=== PATIENT | female | born 1980 | race African-American/Black ===

== ENCOUNTER 2020-04-30 18:39 | Inpatient (IN) | payer OTHER ==
[~2020-04-30] VITALS: Ht 160 cm; Wt 62.4 kg
[2020-04-30 18:40] VITALS: BP 86/61
[2020-04-30 19:37] LABS: ABSOLUTE NEUTROPHILS 12.2 thou/uL (1.4-8.2); BASOPHILS 0.3 % (0.0-2.0); EOSINOPHILS 0.3 % (0.0-3.0); HEMATOCRIT 26.4 % (37.0-47.0); HEMOGLOBIN 8.9 gm/dL (12.0-15.0); LYMPHOCYTES 14.2 % (24.0-44.0); MCH 25.9 pg (26.0-34.0); MCHC 33.7 g/dL (28.0-37.0); MCV 76.8 fL (80.0-100.0); MONOCYTES 9.5 % (1.0-8.0); PLATELET COUNT 631 thou/uL (150-400); POLYS 75.7 % (36.0-66.0); RBC 3.44 mil/uL (4.20-5.00); RDW 19.2 % (10.5-14.5); WBC 16.2 thou/uL (4.0-11.0)
[2020-04-30 19:57] LABS: ALBUMIN 1.3 g/dL (3.4-5.0); ANION GAP 8 mmol/L (7-16); BUN 36 mg/dL (7-18); CALCIUM 9.5 mg/dL (8.5-10.1); CHLORIDE 99 mmol/L (98-107); CO2 37 mmol/L (21-32); CREATININE 9.3 mg/dL (0.6-1.0); DIRECT BILIRUBIN < 0.1 mg/dL (<0.1-0.2); GLUCOSE 120 mg/dL (74-106); LIPASE 407 U/L (73-393); SGOT 20 U/L (15-37); SODIUM 144 mmol/L (136-145); TOTAL BILIRUBIN 0.4 mg/dL (0.2-1.0); TOTAL PROTEIN 6.7 g/dL (6.4-8.2); TROPONIN-I 0.08 ng/mL (<0.06)
[2020-04-30 19:58] LABS: POTASSIUM 2.5 mmol/L (3.5-5.1)
[2020-04-30 20:20] LABS: SGPT < 6 U/L (30-65)
[2020-04-30] MEDS ORDERED: METHOCARBAMOL500 M2 PO (23:48)
[2020-04-30] MEDS ORDERED: NORCO 10-325 T1 EACH PO (23:48)
[2020-04-30] MEDS ORDERED: MELOXICAM7.5 MG PO (23:48)
[2020-04-30] MEDS ORDERED: ASA81BEC PO (23:48)
[2020-04-30] MEDS ORDERED: CYCLOBENZAPRINE5 MG PO (23:48)
[2020-04-30] MEDS ORDERED: AMLODIPINE BESY10 MG PO (23:49)
[2020-05-01] VITALS (8 sets, daily range): BP systolic 115–141; BP diastolic 78–96
[2020-05-01] MEDS ORDERED: CLONIDINE HCL0.1 MG PO (01:49)
[2020-05-01] MEDS ORDERED: PROTONIX40 M2 PO (01:49)
[2020-05-01] MEDS ORDERED: LOSARTAN POTASS50 MG PO (01:49)
[2020-05-01] MEDS ORDERED: MYCOPHENOLATE500 MG PO (01:51)
[2020-05-01] MEDS ORDERED: LOPRESSOR50 PO (01:53)
[2020-05-01 02:55] LABS: HEMATOCRIT 23.1 % (37.0-47.0); HEMOGLOBIN 7.6 gm/dL (12.0-15.0); MCH 25.7 pg (26.0-34.0); MCHC 33.1 g/dL (28.0-37.0); MCV 77.6 fL (80.0-100.0); RBC 2.97 mil/uL (4.20-5.00); RDW 19.2 % (10.5-14.5); WBC 13.1 thou/uL (4.0-11.0)
[2020-05-01 03:16] LABS: CALCIUM 8.4 mg/dL (8.5-10.1); CREATININE 8.9 mg/dL (0.6-1.0); MAGNESIUM 1.4 mg/dL (1.8-2.4)
[2020-05-01 03:44] LABS: POTASSIUM 2.6 mmol/L (3.5-5.1)
--- NOTE | 2020-05-01 04:21 | NUR ---
PATIENT WAS A NEW ADMISSION TO THE UNIT THIS SHIFT. SHE ARRIVED VIA CART FROM THE ER AND WAS ABLE TO AMBULATE TO THE BED WITH ASSISTANCE INCIDENT FREE. PATIENT IS ALERT AND ORIENTED AND ABLE TO PARTICIPATE IN ADMISSION. CHIEF COMPLAINTS WERE PAIN AND NAUSEA WHICH HAVE BEEN TREATED EFFECTIVELY THROUGH MEDICATIONS. NURSE TO FULLY COMPLETE ADMISSION AND INITIATE PLAN OF CARE.
--- NOTE | 2020-05-01 07:44 | EKG ---
[facility] [place] [address] ELECTROCARDIOGRAM REPORT Name: SHIV NATH Room #: 202-P ADM IN M.R.#: [id number] Admission: 04/30/20 Attend Phys: Daniel Breen MD Discharge: Date of : 78 Report #: [id number] THIS REPORT FOR: cc: JAMIR - [facility] family physician/PCP JAMIR - [place] family physician/PCP Harlan Castillo MD [facility] ~ THIS REPORT FOR: //name// [facility] ED Test Date: 2020-04-30 Test Time: 18:48:48 Pat Name: SHIV NATH Department: Room: [facility] Gender: F Outsole Rounder: CARLOS : 1980 Requested By: Ruperto Velarde Order Number: [id number] MD: Harlan Castillo Measurements Intervals [place] Rate: 139 P: 74 TN: 165 QRS: 45 QRSD: 74 T: 241 QT: 269 QTc: 409 Interpretive Statements Sinus tachycardia Ventricular premature complex Borderline repolarization abnormality No previous ECG available for comparison Electronically Signed On 05-01-2020 7:43:53 CDT by Harlan Castillo [email or web address] <ELECTRONICALLY SIGNED> By: Harlan Castillo MD, FACC 05/01/20 0743 1848 47 Harlan Castillo MD, [facility] /EPI
[2020-05-01 11:32] LABS: % SATURATION 66 % (20-39); IRON 39 ug/dL (50-170); TIBC 59 ug/dL (250-450)
--- NOTE | 2020-05-01 14:02 | NUR ---
Case opened to follow for dc planning. Oil Painter visited with the pt at bedside. Cm role introduced. Pt has hx of lupus, ESRD and recent hip surgery S/P THR at [facility]. She had dc'd to home and was getting HH nursing and therapy services through [facility] . The pt does home PD at night and has been on dialysis for a number of years. The pt lives with her spouse and children. She has a rwalker in place and would like to use [facility] again at [place]. She denies any other dc planning needs but would like nutritional education and help with meal planning. Principal Programmer notified of request for additional education. Pt admitted with n/v and GI consult is in progress. Will follow along and to resume her hh services at [place]. Therapy evals are pending.
--- NOTE | 2020-05-01 16:22 | NUR ---
PT ON SERVICE WITH [facility] PRIOR TO ADM FAXED CLINICAL UPDATE SPOKE WITH INTAKE THEY RECEIVED UPDATE AND WILL RESUME CARE AT [place].
--- NOTE | 2020-05-01 16:43 | NUR ---
ASSUMED CARE AT CHANGE OF SHIFT. PT ALERT X4 FROM HOME WITH FAMILY. PAIN TO RIGHT HIP MANAGED WTIH PRN PAIN MEDS. GI CONSULTED FOR THROAT PAIN/BURNING. TOLERATED CLD. PT DOES NOT URINATE. NO BM NOTED. VQ COMPLETED. REPLACED POTASSIUM AND MAGNISIUM. AX1 WITH WALKER. PT STATES SHE HAS HOME HEALTH. PARITANEAL DIALYSIS AT THIS. TIME. FALL PRECATIONS IN PLACE. CALL LIGHT AND PERSONAL ITEMS IN REACH. CALLS FOR ASSISTANCE.
[2020-05-01 17:58] LABS: BF NUCLEATED CELLS 1 /mm3; BF RBC 476 /mm3
[2020-05-01 18:00] LABS: CLARITY CLEAR; COLOR COLORLESS; TOTAL VOLUME 85 mL
[2020-05-01 18:02] LABS: SOURCE PD FLUID
[2020-05-01 20:26] LABS: MAGNESIUM 2.2 mg/dL (1.8-2.4); POTASSIUM 3.7 mmol/L (3.5-5.1)
[2020-05-02 03:20] VITALS: BP 112/75
[2020-05-02 06:30] LABS: CALCIUM 8.2 mg/dL (8.5-10.1); CREATININE 8.6 mg/dL (0.6-1.0); PHOSPHORUS 3.5 mg/dL (2.5-4.9); POTASSIUM 4.1 mmol/L (3.5-5.1)
[2020-05-02 08:27] VITALS: BP 112/73
[2020-05-02 11:46] VITALS: BP 94/64
[2020-05-02 15:04] VITALS: BP 128/84
[2020-05-02 15:07] VITALS: BP 117/40
--- NOTE | 2020-05-02 17:31 | NUR ---
RECEIVED PT'S CARE AROUND 0735; PT. ON BED; ALERT; SLEEP INTERRUPTED DURING SHIFT CHANGED; DURING AM ASSESSMENT PT. AOX4; C/O R. HIP PAIN AFTER WALKING WITH PT; PRN PAIN MEDICATION GIVEN WITH AM MEDICATIONS; EDUCATED ABOUT THE IMPORTANCE OF GETTING PRESCRIBED MEDICATION TO PROMOTE BM WITH MASTIC WORKER AT THE BED SIDE; ST[facility] UND[facility]STANDING; THROUGH THE DAY REMAINED ABOUT IT; ST. UNDERSTANDING; BP HOLD DUE TO SOFT BP & LOW MAP; EDUCATED ABOUT NUTRITION; [facility]. UNDERSTANDING; ABLE TO HAVE TWO BMs THROUGH THE DAY; ORDERED BOOTS DUE TO NOTICED FOOT DROP; EDUCATED ABOUT IT; ST. UNDERSTANDING; SR ON THE MONITOR; ASSESSMENT CHARGED; FOLLOWING POC; WILL PASS ON REPORT;
[2020-05-02 19:39] VITALS: BP 121/84
[2020-05-03 01:10] VITALS: BP 103/72
[2020-05-03 03:26] VITALS: BP 114/79
--- NOTE | 2020-05-03 03:53 | NUR ---
ASSESSMENT DOCUMENTED.PT BEEN RESTING IN NO ACUTE DISTRESS.A/OX4.VSS.PAIN MEDS GIVEN FOR DOLLY LOWER EXTREMITIES PAIN W/RELIEF.UP W/SBA TO BSC/RIGHT HIP INCISIONS INTACT.PT DENIES ANY NEEDS AT THIS TIME,WILL CONT TO MONITOR PER POC
[2020-05-03 08:44] LABS: ALBUMIN 1.1 g/dL (3.4-5.0); CALCIUM 8.5 mg/dL (8.5-10.1); CREATININE 9.2 mg/dL (0.6-1.0); PHOSPHORUS 3.9 mg/dL (2.5-4.9); POTASSIUM 4.4 mmol/L (3.5-5.1)
[2020-05-03 09:00] VITALS: BP 113/81
[2020-05-03 11:30] VITALS: BP 107/69
--- NOTE | 2020-05-03 13:53 | NUR ---
Case discussed with the care team. Pt will be getting her dialysis cath revised prior to dc. DC home with resumption of [facility] services remains the dc plan. DC home 2-3 days. Notify [facility] [phone] natalia GRIFFITH and fax dc orders to [phone] if dc ready this weekend.
[2020-05-03 15:45] VITALS: BP 103/69
[2020-05-03 19:40] VITALS: BP 112/69
--- NOTE | 2020-05-03 20:43 | NUR ---
RECEIVED PT'S CARE AROUND 0730; PT. ON BED; RESTING WITH EYES CLOSED; SLEEP INTERRUPTED; DURING AM ASSESSMENT AOX4; NO C/O PAIN; AM MEDICATIONS GIVEN; REFUSED SCHEDULED COLACE & MYRALAX; EDUCATED ABOUT FLUID INTAKE ST. UNDERSTANDING; SR ON THE MONITOR; NO BM DURING THE DAY; EDUCATED ABOUT SALT RESTRICTION WHEN ORDER DINNER; REMAINED ABOUT RENAL DIET; ST. UNDERSTANDING; BOOTS APPLIED; ASSESSMENT CHARGED; FOLLOWING POC; PASSED ON REPORT;
[2020-05-04 03:19] LABS: HEMATOCRIT 22.4 % (37.0-47.0); HEMOGLOBIN 7.5 gm/dL (12.0-15.0); MCH 25.9 pg (26.0-34.0); MCHC 33.3 g/dL (28.0-37.0); MCV 77.9 fL (80.0-100.0); RBC 2.88 mil/uL (4.20-5.00); RDW 19.5 % (10.5-14.5); WBC 14.2 thou/uL (4.0-11.0)
[2020-05-04 03:30] LABS: ALBUMIN 1.1 g/dL (3.4-5.0); CALCIUM 8.6 mg/dL (8.5-10.1); PHOSPHORUS 4.4 mg/dL (2.5-4.9); POTASSIUM 4.5 mmol/L (3.5-5.1)
--- NOTE | 2020-05-04 03:33 | NUR ---
ASSESSMENTS CHARTED, MEDS CHARTED GIVEN. PATIENT RESTING IN BED DURING SHIFT. PATIENT NORMALLY DOES PERITENEAL DIALYSIS, BUT DIALYSIS PORT NEEDS TO BE REVISED OR REPLACED PRIOR TO USE. IN PROFO BOOTS. FALL PRECAUTIONS IN PLACE DURING SHIFT. DENIED PAIN.
[2020-05-04 03:42] LABS: CREATININE 10.8 mg/dL (0.6-1.0)
[2020-05-04 04:00] VITALS: BP 109/72
[2020-05-04 07:35] VITALS: BP 115/80
[2020-05-04 11:10] VITALS: BP 146/96
--- NOTE | 2020-05-04 15:03 | NUR ---
AAOX4. CUSIONOID. PERITONEAL DIALYSIS SUCCESSFUL. SR PER TELE. DENIES CP. DIALYSIS WILL LAST UNTIL 2199. WILL CONTINUE TO FOLLOW CLOSELY.
[2020-05-04 15:05] VITALS: BP 102/66
[2020-05-04 19:20] VITALS: BP 92/65
[2020-05-05 03:30] VITALS: BP 102/66
[2020-05-05 04:37] LABS: HEMATOCRIT 20.7 % (37.0-47.0); MCH 26.4 pg (26.0-34.0); MCHC 33.6 g/dL (28.0-37.0); MCV 78.5 fL (80.0-100.0); RBC 2.64 mil/uL (4.20-5.00); RDW 19.4 % (10.5-14.5); WBC 14.5 thou/uL (4.0-11.0)
[2020-05-05 04:53] LABS: ALBUMIN 1.2 g/dL (3.4-5.0); CALCIUM 8.6 mg/dL (8.5-10.1); PHOSPHORUS 4.2 mg/dL (2.5-4.9); POTASSIUM 4.6 mmol/L (3.5-5.1)
[2020-05-05 04:56] LABS: CREATININE 8.8 mg/dL (0.6-1.0)
--- NOTE | 2020-05-05 05:04 | NUR ---
ASSUMED CARE OF PATIENT AT 1900; AOX4; ASYMPTOMATIC HoTN MANAGED BY WITHOLDING KATHIE MED/SR ON THE MONITOR; C/O OF PAIN TO RT HIP SITE AREA MANAGED WITH MEDICATION AND REST; PATIENT SLEPT MOST OF THE NOC/NO DISTRESS NOTED; PATIENT ON PERITONEAL DIALYSIS MANAGED BY DRY ROOM ATTENDANT; WILL CONTINUE TO FOLLOW POC AND MONITOR
[2020-05-05 07:25] VITALS: BP 123/83
[2020-05-05 11:20] VITALS: BP 104/70
[2020-05-05] MEDS ORDERED: HYDROXYCHLOROQ200 M1 PO (11:26)
[2020-05-05] MEDS ORDERED: PREDNISONE 5 MG5 M1 PO (11:35)
[2020-05-05] MEDS ORDERED: REGLAN 5 MG TAB5 MG PO (11:35)
--- NOTE | 2020-05-05 14:56 | NUR ---
CALLED FAMILY TO LET THEM KNOW THEY PACKED UP EVERYTHING BUT LEFT THE PRAFO BOOTS, WILL PLACE IN HALLWAY WHERE PT BAGS ARE KEPT. THEY EVEN PICKED UP THE BAGS NEXT TO IT.
--- NOTE | 2020-05-06 16:33 | NUR ---
Patient discharged on wednesday with orders for home health. Faxed HH orders to [facility] and notified them.
== END 2020-05-05 13:31 | disposition home health service (06) | DRG 919 ==
LOC: ER 18:39 → 2N 22:43 → EROBS 22:43 → 2N 05-01 02:06
PROVIDERS: Emergency Medicine; Internal Medicine Nephrology; Nurse Practitioner; Nurse Practitioner Family; ADMIT Hospitalist; ATTEND Hospitalist
PROC: 3E1M39Z Irrigation of Peritoneal Cavity using Dialysate, Percutaneous Approach (ICD-10-PCS; principal; 2020-05-01)
PROC: 3E1M39Z Irrigation of Peritoneal Cavity using Dialysate, Percutaneous Approach (ICD-10-PCS; 2020-05-04)
DX: T85.611A Breakdown (mechanical) of intraperitoneal dialysis catheter, initial encounter (principal); N18.6 End stage renal disease; I12.0 Hypertensive chronic kidney disease with stage 5 chronic kidney disease or end stage renal disease; E87.6 Hypokalemia; M32.9 Systemic lupus erythematosus, unspecified; R07.9 Chest pain, unspecified; D64.9 Anemia, unspecified; K59.00 Constipation, unspecified; Z96.641 Presence of right artificial hip joint; Z91.048 Other nonmedicinal substance allergy status; Z79.82 Long term (current) use of aspirin; Z79.899 Other long term (current) drug therapy; Z99.2 Dependence on renal dialysis; Y92.89 Other specified places as the place of occurrence of the external cause
CPT/HCPCS: 10081; 33000